=== PATIENT | male | born 1955 | race Caucasian/White ===

== ENCOUNTER 2018-02-15 14:35 | Inpatient (IN) | payer MEDICARE ==
[2018-02-15 16:08] LABS: ADD MAN DIFF? NO
[2018-02-15 16:11] LABS: BASOPHILS % 0.3 % (0.0-2.0); EOSINOPHILS # 0.1 10^3/ul (0.0-0.5); EOSINOPHILS % 1.1 % (0.0-7.0); HEMATOCRIT 42.4 % (42.0-52.0); HEMOGLOBIN 13.9 g/dl (14.0-18.0); LYMPHOCYTES % 39.8 % (15.0-51.0); MEAN CORPUSCULAR HEMOGLOBIN 29.4 pg (29.0-33.0); MEAN CORPUSCULAR HGB CONC 32.8 g/dl (32.0-37.0); MEAN CORPUSCULAR VOLUME 89.6 fl (82.0-101.0); MEAN PLATELET VOLUME 10.2 fl (7.4-10.4); MONOCYTE # 0.7 10^3/ul (0.3-0.9); MONOCYTES % 7.1 % (0.0-11.0); NEUTROPHIL # 5.1 10^3/ul (1.6-7.5); NEUTROPHILS % 51.2 % (39.0-77.0); PLATELET COUNT 269 10^3/UL (140-415); RED BLOOD COUNT 4.73 10^6/ul (4.70-6.10); RED CELL DISTRIBUTION WIDTH 13.2 % (11.5-14.5)
[2018-02-15 16:11] LABS: WHITE BLOOD COUNT 9.9 10^3/ul (4.8-10.8)
[2018-02-15 16:21] LABS: ANION GAP 15 (8-16); BLOOD UREA NITROGEN 14 mg/dl (7-20); CALCIUM 8.9 mg/dl (8.4-10.2); CARBON DIOXIDE 26 mmol/L (21-31); CHLORIDE 102 mmol/L (97-110); CHOL/HDL RATIO 3.7 RATIO; CHOLESTEROL 162 mg/dl (100-200); CREATININE 0.59 mg/dl (0.61-1.24); HDL CHOLESTEROL 43 mg/dl (30-78); LDL CHOLESTEROL,CALCULATED 80 mg/dl; POTASSIUM 4.9 mmol/L (3.5-5.1); SODIUM 138 mmol/L (135-144); TRIGLYCERIDES 197 mg/dl (0-149)
[2018-02-15 16:23] LABS: GLUCOSE 449 mg/dl (70-220)
[2018-02-15 16:32] LABS: TROPONIN-I < 0.012 ng/ml (0.000-0.120)
[2018-02-15 16:35] LABS: HEMOGLOBIN A1C 11.9 % (0-5.9)
[2018-02-15] MEDS ORDERED: ONDANSETRON 4 MG INJ IV ×2 (17:00→19:30)
[2018-02-15] MEDS ORDERED: ACETAMINOPHEN 325 MG TAB PO ×2 (17:00→19:30)
[2018-02-15 17:09] LABS: ADD UMIC YES; UR ASCORBIC ACID NEGATIVE (NEGATIVE); UR BACTERIA MODERATE /HPF (NONE SEEN); UR BILIRUBIN (Dip) NEGATIVE (NEGATIVE); UR BLOOD (Dip) 3+ mg/dL (NEGATIVE); UR CLARITY CLOUDY (CLEAR); UR COLOR YELLOW (YELLOW); UR GLUCOSE (Dip) 3+ mg/dL (NEGATIVE); UR KETONES (Dip) NEGATIVE (NEGATIVE); UR LEUKOCYTE ESTERASE (Dip) 3+ Leu/ul (NEGATIVE); UR NITRITE (Dip) NEGATIVE (NEGATIVE); UR RBC 58 /HPF (0-5); UR SPECIFIC GRAVITY (Dip) 1.023 (1.003-1.030); UR SQUAMOUS EPITHELIAL CELL MODERATE /HPF (FEW); UR TOTAL PROTEIN (Dip) NEGATIVE (NEGATIVE); UR UROBILINOGEN (Dip) NEGATIVE (NEGATIVE); UR WBC 101 /HPF (0-5)
[2018-02-15 17:11] LABS: INR 1.03; PROTIME 13.6 Sec (11.9-14.9); PT RATIO 1.1
[2018-02-15 17:12] LABS: PARTIAL THROMBOPLASTIN TIME 26.9 Sec (25.0-35.0)
[2018-02-15 17:26] LABS: AMPHETAMINE/METHAMPHETAMINE Positive (NEGATIVE); BARBITURATES Negative (NEGATIVE); BENZODIAZEPINES Negative (NEGATIVE); CANNABINOIDS Positive (NEGATIVE); COCAINE Negative (NEGATIVE); OPIATES Positive (NEGATIVE)
[2018-02-15] MEDS: ACETAMINOPHEN 325 MG TAB PO (17:48)
[2018-02-15] MEDS ORDERED: NACL 0.9% 3 ML SYG IV (19:30)
[2018-02-15] MEDS ORDERED: DOCUSATE SODIUM 100 MG CAP PO (19:30)
[2018-02-15] MEDS ORDERED: hydrALAzine 20 MG INJ IV (19:30)
[2018-02-15] MEDS: CEFTRIAXONE 1 GM/50 ML (PMX) 50 ML IVPB (19:32)
[2018-02-15] MEDS ORDERED: DEXTROSE 50% 50 ML SYRINGE IV ×2 (20:00)
[2018-02-15] MEDS ORDERED: GLUCOSE GEL 15 GRAM TUBE BUCCAL (20:00)
[2018-02-15] MEDS ORDERED: GLUCOSE GEL 15 GRAM TUBE PO ×2 (20:00)
[2018-02-15] MEDS ORDERED: GLUCAGON 1 MG INJ IM (20:00)
[2018-02-15] MEDS: HYDROmorphONE 4 MG TAB PO (20:05)
[2018-02-15] MEDS: INSULIN LISPRO 100 UNIT/ML VIAL SC (20:30)
[2018-02-15] MEDS: ATORVASTATIN 80 MG TAB PO (23:26)
[2018-02-15] MEDS: ASPIRIN (EC) 325 MG TAB PO (23:26)
[2018-02-15] MEDS: PROPRANOLOL 40 MG TAB PO (23:26)
[2018-02-15] MEDS: INSULIN GLARGINE [LANtus] 3 ML PEN SC (23:30)
[2018-02-15] MEDS: INSULIN ASPART [NOVOLOG] 3 ML PEN SC (23:30)
[2018-02-16] MEDS: ACCU-CHEK XX (02:00)
[2018-02-16] MEDS: HYDROmorphONE 4 MG TAB PO (05:20)
[2018-02-16 07:39] LABS: ADD MAN DIFF? NO
[2018-02-16 07:44] LABS: WHITE BLOOD COUNT 10.4 10^3/ul (4.8-10.8)
[2018-02-16 07:44] LABS: BASOPHILS % 0.3 % (0.0-2.0); EOSINOPHILS # 0.2 10^3/ul (0.0-0.5); EOSINOPHILS % 1.8 % (0.0-7.0); HEMATOCRIT 44.4 % (42.0-52.0); HEMOGLOBIN 14.4 g/dl (14.0-18.0); LYMPHOCYTES # 4.7 10^3/ul (0.8-2.9); LYMPHOCYTES % 45.2 % (15.0-51.0); MEAN CORPUSCULAR HEMOGLOBIN 29.1 pg (29.0-33.0); MEAN CORPUSCULAR HGB CONC 32.4 g/dl (32.0-37.0); MEAN CORPUSCULAR VOLUME 89.9 fl (82.0-101.0); MEAN PLATELET VOLUME 9.6 fl (7.4-10.4); MONOCYTE # 0.8 10^3/ul (0.3-0.9); MONOCYTES % 7.3 % (0.0-11.0); NEUTROPHIL # 4.6 10^3/ul (1.6-7.5); NEUTROPHILS % 44.7 % (39.0-77.0); PLATELET COUNT 275 10^3/UL (140-415); RED BLOOD COUNT 4.94 10^6/ul (4.70-6.10)
[2018-02-16 07:59] LABS: ANION GAP 12 (8-16); BLOOD UREA NITROGEN 13 mg/dl (7-20); CALCIUM 9.1 mg/dl (8.4-10.2); CARBON DIOXIDE 30 mmol/L (21-31); CHLORIDE 104 mmol/L (97-110); CHOL/HDL RATIO 3.2 RATIO; CHOLESTEROL 158 mg/dl (100-200); CREATININE 0.57 mg/dl (0.61-1.24); GLUCOSE 129 mg/dl (70-220); HDL CHOLESTEROL 48 mg/dl (30-78); LDL CHOLESTEROL,CALCULATED 91 mg/dl; MAGNESIUM 1.6 mg/dl (1.7-2.5); PHOSPHORUS 3.9 mg/dl (2.5-4.9); POTASSIUM 4.2 mmol/L (3.5-5.1); SODIUM 142 mmol/L (135-144); TRIGLYCERIDES 95 mg/dl (0-149)
[2018-02-16] MEDS: ASPIRIN (EC) 325 MG TAB PO (08:33)
[2018-02-16] MEDS: PROPRANOLOL 40 MG TAB PO ×2 (08:33→20:54)
[2018-02-16] MEDS: metFORMIN 500 MG TAB PO ×2 (08:34→18:05)
[2018-02-16] MEDS: LISINOPRIL 5 MG TAB PO (08:34)
[2018-02-16] MEDS: INSULIN ASPART [NOVOLOG] 3 ML PEN SC ×7 (08:37→21:00)
[2018-02-16] MEDS: oxyCODONE 15 MG TAB PO ×2 (10:08→19:06)
[2018-02-16] MEDS: LORAZEPAM 2 MG INJ IV (14:49)
[2018-02-16] MEDS: MAGNESIUM SULFATE 2 GM/50 ML 50 ML IVPB (17:46)
[2018-02-16] MEDS: ATORVASTATIN 80 MG TAB PO (20:55)
[2018-02-16] MEDS: MAGNESIUM OXIDE 400 MG TAB PO (20:55)
[2018-02-16] MEDS: INSULIN GLARGINE [LANtus] 3 ML PEN SC (21:05)
[2018-02-17] MEDS: ACCU-CHEK XX (02:00)
[2018-02-17] MEDS: oxyCODONE 15 MG TAB PO (05:39)
[2018-02-17 06:54] LABS: ADD MAN DIFF? NO
[2018-02-17 07:01] LABS: WHITE BLOOD COUNT 11.9 10^3/ul (4.8-10.8)
[2018-02-17 07:01] LABS: BASOPHILS % 0.3 % (0.0-2.0); EOSINOPHILS # 0.2 10^3/ul (0.0-0.5); EOSINOPHILS % 1.3 % (0.0-7.0); HEMOGLOBIN 14.6 g/dl (14.0-18.0); LYMPHOCYTES # 4.5 10^3/ul (0.8-2.9); MEAN CORPUSCULAR HEMOGLOBIN 29.4 pg (29.0-33.0); MEAN CORPUSCULAR HGB CONC 33.2 g/dl (32.0-37.0); MEAN CORPUSCULAR VOLUME 88.7 fl (82.0-101.0); MEAN PLATELET VOLUME 9.7 fl (7.4-10.4); MONOCYTE # 0.8 10^3/ul (0.3-0.9); MONOCYTES % 6.7 % (0.0-11.0); NEUTROPHIL # 6.3 10^3/ul (1.6-7.5); NEUTROPHILS % 53.1 % (39.0-77.0); PLATELET COUNT 281 10^3/UL (140-415); RED BLOOD COUNT 4.96 10^6/ul (4.70-6.10)
[2018-02-17 07:38] LABS: ANION GAP 15 (8-16); BLOOD UREA NITROGEN 18 mg/dl (7-20); CARBON DIOXIDE 27 mmol/L (21-31); CHLORIDE 102 mmol/L (97-110); CREATININE 0.63 mg/dl (0.61-1.24); GLUCOSE 235 mg/dl (70-220); MAGNESIUM 1.6 mg/dl (1.7-2.5); PHOSPHORUS 4.5 mg/dl (2.5-4.9); POTASSIUM 4.1 mmol/L (3.5-5.1); SODIUM 140 mmol/L (135-144)
[2018-02-17] MEDS: PROPRANOLOL 40 MG TAB PO (08:48)
[2018-02-17] MEDS: LISINOPRIL 10 MG TAB PO (08:48)
[2018-02-17] MEDS: MAGNESIUM OXIDE 400 MG TAB PO ×2 (08:49→20:28)
[2018-02-17] MEDS: metFORMIN 500 MG TAB PO ×2 (08:49→18:03)
[2018-02-17] MEDS: HYDROmorphONE 4 MG TAB PO ×3 (08:49→20:31)
[2018-02-17] MEDS: TIZANIDINE 4 MG TAB PO ×3 (08:49→22:37)
[2018-02-17] MEDS: ASPIRIN (EC) 325 MG TAB PO (08:49)
[2018-02-17] MEDS: INSULIN ASPART [NOVOLOG] 3 ML PEN SC ×7 (08:54→20:32)
[2018-02-17] MEDS ORDERED: PENDING SANTYL ORDER FOR WOUND CARE XX (11:00)
[2018-02-17] MEDS: MAGNESIUM SULFATE 3 GM in DEXTROSE 5% 100 ML IVPB (11:31)
[2018-02-17] MEDS: INSULIN GLARGINE [LANtus] 3 ML PEN SC ×2 (13:17→20:30)
[2018-02-17] MEDS: ATORVASTATIN 80 MG TAB PO (20:28)
[2018-02-17] MEDS: MENTHOL/METH SALICYLATE 30 GM OINT TOP (20:30)
[2018-02-18] MEDS: ACCU-CHEK XX (02:00)
[2018-02-18] MEDS: HYDROmorphONE 4 MG TAB PO ×2 (04:06→12:27)
[2018-02-18] MEDS: oxyCODONE 15 MG TAB PO ×3 (07:52→19:46)
[2018-02-18] MEDS: TIZANIDINE 4 MG TAB PO ×3 (07:52→19:45)
[2018-02-18] MEDS: INSULIN ASPART [NOVOLOG] 3 ML PEN SC ×7 (08:01→20:19)
[2018-02-18] MEDS: ASPIRIN (EC) 325 MG TAB PO (08:14)
[2018-02-18] MEDS: metFORMIN 500 MG TAB PO ×2 (08:14→17:31)
[2018-02-18] MEDS: MAGNESIUM OXIDE 400 MG TAB PO ×2 (08:14→20:19)
[2018-02-18] MEDS: LISINOPRIL 10 MG TAB PO (08:14)
[2018-02-18] MEDS: MENTHOL/METH SALICYLATE 30 GM OINT TOP ×3 (08:14→20:19)
[2018-02-18 08:52] LABS: ADD MAN DIFF? NO
[2018-02-18 09:03] LABS: BASOPHILS % 0.3 % (0.0-2.0); EOSINOPHILS # 0.2 10^3/ul (0.0-0.5); EOSINOPHILS % 1.4 % (0.0-7.0); HEMATOCRIT 46.2 % (42.0-52.0); HEMOGLOBIN 15.4 g/dl (14.0-18.0); LYMPHOCYTES # 4.8 10^3/ul (0.8-2.9); LYMPHOCYTES % 37.3 % (15.0-51.0); MEAN CORPUSCULAR HEMOGLOBIN 29.3 pg (29.0-33.0); MEAN CORPUSCULAR HGB CONC 33.3 g/dl (32.0-37.0); MEAN PLATELET VOLUME 9.7 fl (7.4-10.4); MONOCYTE # 0.8 10^3/ul (0.3-0.9); MONOCYTES % 6.5 % (0.0-11.0); NEUTROPHIL # 6.9 10^3/ul (1.6-7.5); NEUTROPHILS % 53.9 % (39.0-77.0); PLATELET COUNT 283 10^3/UL (140-415); RED BLOOD COUNT 5.25 10^6/ul (4.70-6.10); RED CELL DISTRIBUTION WIDTH 13.1 % (11.5-14.5)
[2018-02-18 09:03] LABS: WHITE BLOOD COUNT 12.8 10^3/ul (4.8-10.8)
[2018-02-18 09:22] LABS: ANION GAP 18 (8-16); BLOOD UREA NITROGEN 19 mg/dl (7-20); CALCIUM 9.3 mg/dl (8.4-10.2); CARBON DIOXIDE 23 mmol/L (21-31); CHLORIDE 101 mmol/L (97-110); CREATININE 0.55 mg/dl (0.61-1.24); GLUCOSE 171 mg/dl (70-220); MAGNESIUM 1.6 mg/dl (1.7-2.5); POTASSIUM 4.4 mmol/L (3.5-5.1); SODIUM 138 mmol/L (135-144)
[2018-02-18] MEDS: CEFTRIAXONE 1 GM/50 ML (PMX) 50 ML IVPB (11:00)
[2018-02-18] MEDS: MAGNESIUM SULFATE 4 GM/100 ML 100 ML IVPB (11:44)
[2018-02-18] MEDS: ATORVASTATIN 80 MG TAB PO (20:19)
[2018-02-18] MEDS: INSULIN GLARGINE [LANtus] 3 ML PEN SC (20:21)
[2018-02-18] MEDS: ZOLPIDEM 5 MG TAB PO (20:25)
[2018-02-19] MEDS: ACCU-CHEK XX (01:29)
[2018-02-19] MEDS: HYDROmorphONE 4 MG TAB PO (01:45)
[2018-02-19] MEDS: TIZANIDINE 4 MG TAB PO ×2 (06:16→10:32)
[2018-02-19] MEDS: oxyCODONE 15 MG TAB PO ×2 (06:16→10:29)
[2018-02-19 06:57] LABS: ADD MAN DIFF? NO
[2018-02-19 07:04] LABS: ABNORMAL IP MESSAGE 1; BASOPHIL # 0.1 10^3/ul (0.0-0.1); BASOPHILS % 0.4 % (0.0-2.0); EOSINOPHILS # 0.1 10^3/ul (0.0-0.5); HEMATOCRIT 48.3 % (42.0-52.0); HEMOGLOBIN 15.9 g/dl (14.0-18.0); LYMPHOCYTES # 5.8 10^3/ul (0.8-2.9); LYMPHOCYTES % 43.4 % (15.0-51.0); MEAN CORPUSCULAR HEMOGLOBIN 29.4 pg (29.0-33.0); MEAN CORPUSCULAR HGB CONC 32.9 g/dl (32.0-37.0); MEAN CORPUSCULAR VOLUME 89.4 fl (82.0-101.0); MEAN PLATELET VOLUME 9.5 fl (7.4-10.4); MONOCYTES % 7.2 % (0.0-11.0); NEUTROPHIL # 6.3 10^3/ul (1.6-7.5); PLATELET COUNT 303 10^3/UL (140-415); POSITIVE DIFF @See below; RED CELL DISTRIBUTION WIDTH 13.1 % (11.5-14.5)
[2018-02-19 07:04] LABS: WHITE BLOOD COUNT 13.4 10^3/ul (4.8-10.8)
[2018-02-19 07:46] LABS: ANION GAP 18 (8-16); BLOOD UREA NITROGEN 17 mg/dl (7-20); CALCIUM 9.5 mg/dl (8.4-10.2); CARBON DIOXIDE 29 mmol/L (21-31); CHLORIDE 99 mmol/L (97-110); CREATININE 0.62 mg/dl (0.61-1.24); GLUCOSE 156 mg/dl (70-220); MAGNESIUM 1.9 mg/dl (1.7-2.5); POTASSIUM 4.7 mmol/L (3.5-5.1); SODIUM 141 mmol/L (135-144)
[2018-02-19] MEDS: ASPIRIN (EC) 325 MG TAB PO (08:10)
[2018-02-19] MEDS: MAGNESIUM OXIDE 400 MG TAB PO (08:11)
[2018-02-19] MEDS: metFORMIN 500 MG TAB PO (08:11)
[2018-02-19] MEDS: MENTHOL/METH SALICYLATE 30 GM OINT TOP (08:12)
[2018-02-19] MEDS: INSULIN ASPART [NOVOLOG] 3 ML PEN SC ×4 (08:21→11:28)
[2018-02-19] MEDS: LISINOPRIL 10 MG TAB PO (09:00)
[2018-02-19] MEDS: CEFTRIAXONE 1 GM/50 ML (PMX) 50 ML IVPB (10:29)
== END 2018-02-19 13:16 | disposition home health service (06) | DRG 552 ==
LOC: E/R 14:35 → TEL 16:32
DX: M48.02 Spinal stenosis, cervical region (principal); N39.0 Urinary tract infection, site not specified; E11.65 Type 2 diabetes mellitus with hyperglycemia; E11.43 Type 2 diabetes mellitus with diabetic autonomic (poly)neuropathy; I10 Essential (primary) hypertension; G89.29 Other chronic pain; F17.210 Nicotine dependence, cigarettes, uncomplicated; B95.1 Streptococcus, group B, as the cause of diseases classified elsewhere; Z79.4 Long term (current) use of insulin; Z79.82 Long term (current) use of aspirin; Z91.81 History of falling
CPT/HCPCS: 36415; 70450; 71045; 72125; 80048; 80061; 80307; 81001; 82962; 83036; 83735; 84100; 84484; 85025; 85610; 85730; 87086; 92610; 93005; 93306; 93880; 96374; 97110; 97116; 97161; 97530; 99285-25